=== PATIENT | female | born 1945 | race Caucasian/White ===

== ENCOUNTER 2016-09-22 14:11 | Inpatient (IN) | payer OTHER ==
[~2016-09-22] VITALS: Ht 160 cm; Wt 93.0 kg
[~2016-09-22 14:11] MED LIST: ADULT LOW STREN81 M2 PO; ALBAFORT325 MG PO; ASPIR-LOW81 MG PO; CALCIUM 600 +1 EAC5 PO; CINNAMON BARK500 MG PO; CIPRO500 MG PO; COUMADIN,JANTO7.5 MG; COUMADIN,JANTOVE2 MG PO; COUMADIN6 MG PO; DIOVAN320 MG PO; ELAVIL50 MG PO; ESCITALOPRAM OX10 MG PO; FISH OIL 300 M1 EACH PO; FLAGYL500 MG PO; FORMULA E400 UNIT PO; KEFLEX500 MG PO; LANTUS 3 M100 UNITS/ SQ; LANTUS 3 M100 UNITS1 SC; MULTIVITAMIN1 EAC2 PO; NASONEX17 GM NS; NORCO 5/3251 TABLET PO; NOVOLOG PE100 UNITS/ SC; NOVOLOG100 UNIT/1; OMEPRAZOLE20 M3 PO; OMEPRAZOLE20 MG PO; ONDANSETRON HCL4 MG PO; PRILOSEC20 MG PO; ROBITUSSIN AC,T10 ML PO; SYNTHROID100 MCG PO; SYNTHROID112 MCG PO; TYLENOL WITH C1 EACH PO; VITAMIN D32000 UNIT PO; WARFARIN SODIUM5 MG PO; ZOFRAN ODT8 MG PO; ZYRTEC10 M2 PO; [UNRECOGNIZED DRUG - OTHER] PO
[2016-09-22 14:52] VITALS: BP 151/72
[2016-09-22 17:07] LABS: POINT-OF-CARE METER ID UU14174215
[2016-09-22] MEDS ORDERED: ELIQUIS2.5 MG PO (19:49)
[2016-09-22] MEDS ORDERED: TRESIBA FL100 UNIT/1 SC (19:51)
[2016-09-22] MEDS ORDERED: METOPROLOL TAR100 MG PO (19:52)
[2016-09-22 21:57] LABS: POINT-OF-CARE METER ID UU13113720
[2016-09-23 00:05] VITALS: BP 138/65
[2016-09-23 05:02] VITALS: BP 140/65
[2016-09-23 05:21] LABS: HEMATOCRIT 36.2 % (36.0-46.0); MCV 91.2 FL (83-99); MEAN PLAT.VOLUME 12.5 uM^3 (9.5-12.4); PLATELET COUNT 268 K/uL (156-360); RED BLOOD COUNT 3.97 M/uL (3.80-5.20); WHITE BLOOD COUNT 5.7 K/uL (4.1-10.2)
[2016-09-23 05:44] LABS: ALKALINE PHOSPHATASE 26 IU/L (3-129); ANION GAP 7 MEQ/L (2-14); CHLORIDE 105 MEQ/L (99-109); GFR ESTIMATE (CALCULATED) > 59 mL/min/; GLUCOSE 94 mg/dL (70-99); POTASSIUM 3.8 MEQ/L (3.7-5.4); SAMPLE HEMOLYSIS CHECK 1; SAMPLE ICTERIC CHECK 0; SAMPLE LIPEMIA CHECK 0; SODIUM 140 MEQ/L (136-147); TOTAL BILIRUBIN 0.5 MG/DL (0.0-1.0); UREA NITROGEN (BUN) 10 mg/dL (9-23)
[2016-09-23 07:04] LABS: POINT-OF-CARE METER ID UU14174215
[2016-09-23 11:11] LABS: POINT-OF-CARE METER ID UU14174215
[2016-09-23] MEDS ORDERED: DIOVAN320 MG PO (14:26)
[2016-09-23 15:16] VITALS: BP 135/96
[2016-09-23 15:20] VITALS: BP 135/96
[2016-09-23 16:21] LABS: POINT-OF-CARE METER ID UU14174215
[2016-09-23 21:31] LABS: POINT-OF-CARE METER ID UU13113720
[2016-09-24 05:40] VITALS: BP 138/64
[2016-09-24 07:08] LABS: POINT-OF-CARE METER ID UU14174215; POINT-OF-CARE USER ID ENVGAF
[2016-09-24 11:22] LABS: POINT-OF-CARE METER ID UU14174215; POINT-OF-CARE USER ID ENVGAF
[2016-09-24 15:16] VITALS: BP 168/69
[2016-09-24 16:05] LABS: POINT-OF-CARE METER ID UU14174215
[2016-09-24] MEDS ORDERED: FENOFIBRATE134 M1 PO (19:39)
[2016-09-24] MEDS ORDERED: VITAMIN D35000 UNIT PO (19:40)
[2016-09-24] MEDS ORDERED: ZYRTEC10 M2 PO (19:41)
[2016-09-24] MEDS ORDERED: NASONEX17 GM BOTH NARES (19:42)
[2016-09-24 21:18] LABS: POINT-OF-CARE METER ID UU14174215
[2016-09-25 05:26] VITALS: BP 142/65
[2016-09-25 07:11] LABS: POINT-OF-CARE METER ID UU13113720; POINT-OF-CARE USER ID ENVGAF
[2016-09-25 12:04] LABS: POINT-OF-CARE METER ID UU13113720
[2016-09-25 15:15] VITALS: BP 142/62
[2016-09-25 16:26] LABS: POINT-OF-CARE METER ID UU13113720
[2016-09-25 21:52] LABS: POINT-OF-CARE METER ID UU13113720
[2016-09-26 05:45] VITALS: BP 152/80
[2016-09-26 07:17] LABS: POINT-OF-CARE METER ID UU13113720
[2016-09-26 11:53] LABS: POINT-OF-CARE METER ID UU14174215
[2016-09-26 15:41] VITALS: BP 155/70
[2016-09-26 16:35] LABS: POINT-OF-CARE METER ID UU14174215
[2016-09-26 20:41] LABS: POINT-OF-CARE METER ID UU14174215
[2016-09-27 05:39] VITALS: BP 153/67
[2016-09-27 08:08] LABS: POINT-OF-CARE METER ID UU14174215
[2016-09-27 11:45] LABS: POINT-OF-CARE METER ID UU14174215
[2016-09-27 15:46] VITALS: BP 179/74
[2016-09-27 16:05] LABS: POINT-OF-CARE METER ID UU14174215
[2016-09-27 21:11] LABS: POINT-OF-CARE METER ID UU14174215
[2016-09-28 04:00] VITALS: BP 146/64
[2016-09-28 07:43] LABS: POINT-OF-CARE METER ID UU14174215
[2016-09-28 11:48] LABS: POINT-OF-CARE METER ID UU14174215
[2016-09-28 15:00] VITALS: BP 140/53
[2016-09-28 16:24] LABS: POINT-OF-CARE METER ID UU14174215
[2016-09-28 21:13] LABS: POINT-OF-CARE METER ID UU13113720; POINT-OF-CARE USER ID 610211320
[2016-09-29 05:41] VITALS: BP 137/60
[2016-09-29 06:59] LABS: POINT-OF-CARE METER ID UU14174215
[2016-09-29 11:27] LABS: POINT-OF-CARE METER ID UU13113720; POINT-OF-CARE USER ID ENVGAF
[2016-09-29 15:16] VITALS: BP 136/61
[2016-09-29 16:47] LABS: POINT-OF-CARE METER ID UU13113720
[2016-09-29] MEDS ORDERED: ASCORBIC ACID500 M3 PO (19:50)
[2016-09-29] MEDS ORDERED: LIDOCAINE700 MG TD (19:50)
[2016-09-29] MEDS ORDERED: ELIQUIS2.5 MG PO (19:50)
[2016-09-29] MEDS ORDERED: FOLIC ACID1 MG PO (19:50)
[2016-09-29] MEDS ORDERED: METOPROLOL TAR100 MG PO (19:50)
[2016-09-29] MEDS ORDERED: THERAGRAN1 TABLET PO (19:50)
[2016-09-29] MEDS ORDERED: OMEPRAZOLE20 MG PO (19:50)
[2016-09-29] MEDS ORDERED: NORCO 5/3251 TABLET PO (19:50)
[2016-09-29] MEDS ORDERED: DIOVAN320 MG PO (19:50)
[2016-09-29 21:05] LABS: POINT-OF-CARE METER ID UU13113720
[2016-09-30 05:21] VITALS: BP 164/70
[2016-09-30 07:27] LABS: POINT-OF-CARE METER ID UU13113720; POINT-OF-CARE USER ID ENVGAF
[2016-09-30 11:35] LABS: POINT-OF-CARE METER ID UU13113720; POINT-OF-CARE USER ID ENVGAF
== END 2016-09-30 14:23 | DRG 560 ==
LOC: 3WEST 14:11
PROVIDERS: Physical Medicine & Rehabilitation Pain Medicine
PROC: F07M0ZZ Range of Motion and Joint Mobility Treatment of Musculoskeletal System - Whole Body (ICD-10-PCS; principal; 2016-09-22)
DX: Z47.1 Aftercare following joint replacement surgery (principal); Z96.651 Presence of right artificial knee joint; D62 Acute posthemorrhagic anemia; R26.2 Difficulty in walking, not elsewhere classified; J98.11 Atelectasis; E66.9 Obesity, unspecified; I10 Essential (primary) hypertension; E78.5 Hyperlipidemia, unspecified; E03.9 Hypothyroidism, unspecified; E11.9 Type 2 diabetes mellitus without complications; F41.9 Anxiety disorder, unspecified; Z86.718 Personal history of other venous thrombosis and embolism; Z86.711 Personal history of pulmonary embolism; M47.812 Spondylosis without myelopathy or radiculopathy, cervical region; Z68.36 Body mass index [BMI] 36.0-36.9, adult; G31.84 Mild cognitive impairment of uncertain or unknown etiology; F32.9 Major depressive disorder, single episode, unspecified
CPT/HCPCS: 80053; 82948; 85027; 87493; 97110 GO; 97530 GP; J1815